=== PATIENT | female | born 1980 | race Caucasian/White ===

== ENCOUNTER → 2020-01-16 15:26 | Outpatient (REF) | payer BC, SELFPAY | LOC: ANHLAB 15:26 | PROVIDERS: PCP Internal Medicine; Visit Provider Nurse Practitioner | DX: D22.5 Melanocytic nevi of trunk (principal) | CPT/HCPCS: 88305 ==

== ENCOUNTER → 2020-09-10 | Outpatient (CLI) | payer BC, SELFPAY ==
--- NOTE | ~2020-09-10 | CT_ITS ---
EXAMINATION: CT sinus wo con DATE: 09/10/2020 14:07 INDICATION: Headaches TECHNIQUE: Computed tomography (CT) of the paranasal sinuses was performed without contrast. Iterativ e reconstruction technique was employed. Exam dose: 292.39 mGy-cm total exam DLP. COMPARISON: None FINDINGS: There is rightward deviation of the nasal septum. The ostiomeatal units, paranasal sinuses and mastoid air cells are normally developed and aerated other than minimal septal soft tissue thicke abdoulaye of some ethmoid air cells bilaterally. IMPRESSION: Rightward deviation of nasal septum Minimal bilateral ethmoid septal soft tissue thickening; otherwise negative paranasal sinuses, ostiom eatal units and mastoid air cells Reviewed, dictated and finalized at [facility]. Reviewed, dictated and finalized at [facility]. 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
== END | disposition home or self-care (01) ==
PROVIDERS: PCP Internal Medicine; Visit Provider Physician Assistant Medical
DX: R51.9 Headache, unspecified (principal)
CPT/HCPCS: 70486

== ENCOUNTER → 2023-08-26 13:38 | Outpatient (CLI) | payer OTHER, SELFPAY ==
--- NOTE | ~2023-08-26 | MR_ITS ---
EXAMINATION: MR brain/brain stem wo/w con DATE: 08/26/2023 14:16 INDICATION: Migraine, unspecified, not intractable. TECHNIQUE: Magnetic resonance imaging (MRI) of the brain and brainstem was performed without and with 10 mL MultiHance intravenous contrast. COMPARISON: None. FINDINGS: There is no intracranial hemorrhage, acute infarction, or abnormal intracranial mass lesion . There is a developmental venous anomaly in left frontal lobe. The ventricles are normal in size. Th ere is mild mucosal thickening in the ethmoid sinuses. The mastoid air cells are normal. The orbits a re normal. IMPRESSION: 1. Normal brain. Reviewed, dictated and finalized at [facility]. ERY BOSS IMPRESSION: 1. Normal brain.
== END ==
PROVIDERS: PCP Physician Assistant Medical; Visit Provider Physician Assistant Medical
DX: G43.909 Migraine, unspecified, not intractable, without status migrainosus (principal)
CPT/HCPCS: 70553; A9577